=== PATIENT | female | born 1995 | race Caucasian/White ===

== ENCOUNTER 2019-03-27 16:46 | Emergency (ER) | payer OTHER | END 2019-03-27 19:28 | disposition home or self-care (01) | LOC: ED 16:46 ==

== ENCOUNTER 2024-03-24 12:34 | Emergency (ER) | payer BC ==
[2024-03-24 12:56] VITALS: TEMP 96; O2SAT 97
[2024-03-24] MEDS ORDERED: solu-MEDROL ONE (13:11)
[2024-03-24] MEDS ORDERED: BENADRYL 50 MG/ML ONE (13:11)
[2024-03-24] MEDS ORDERED: Sterile H2O 10 ml IJ ONE (13:11)
[2024-03-24] MEDS ORDERED: Sodium Chloride 0.9% 1000 ML 1,000 ML ONE (13:11)
[2024-03-24] MEDS ORDERED: Zofran 4 MG/2 ML VIAL ONE (13:11)
--- NOTE | 2024-03-24 13:11 | ERPHSYRPT ---
- History of Present Illness Time Seen by Provider: 03/24/24 13:00 Source: patient Exam Limitations: no limitations Patient Subjective Stated Complaint: Allergic Reaction Triage Nursing Assessment: Patient ambulated back to ED and transferred self to bed. Patient A+O X3. Patient's skin pink, warm and dry. Patient had her gallbladder removed on 03/22/2024. Patient states Tuesday morning she started developing a rash around the dressing site areas. Patient states Tuesday evening the rash got worse. Patient has been taking Benadryl 50mg and pepcid 40mg every 4 hours since. Patient has started vomiting and unable to keep meds down. Patient has scattered red rash to face, chest, breasts, abdomen and pelvic area. Patient denies pain or discomfort. Patient complains of itching to rash. Physician History: 28yo f presents via private vehicle for rash that started after having laparoscopic cholecystectomy by Dr Bueno on 03/22/24. Pt reports she has had a similar reaction to adhesive in the past following her epidural during child . Pt reports the rash is most painful and itchy on her upper abdomen and un kd her breasts b/l, states it has been spreading to her lower abdomen, flanks, and reports she is starting to feel irritation around her face. Pt reports she has taken pepcid and benadryl 50mg today, has also been using steroid cream since the rash developed w/o any improvement. Pt has mild cough that started following intubation, pt denies any fevers at home. Pt does endorse 1 episode of emesis this AM, denies any difficulty swallowing or difficulty breathing. Timing/Duration: day(s) (3) Quality: itchy, painful Severity: moderate Location: face, torso Possible Causes: exposure to allergen Associated Symptoms: flushing, hives, rash, No difficulty breathing, No edema, No fever, No headache, No numbness, No paresthesia, No sore throat, No s welling/mass/lumps, No tingling Allergies/Adverse Reactions: No Known Drug Allergies Allergy (Verified 03/24/24 12:41) Hx Tetanus, Diphtheria Vaccination/Date Given: Yes Hx Influenza Vaccination/Date Given: No Hx Pneumococcal Vaccination/Date Given: No Immunizations Up to Date: Yes Travel Risk - International Travel Have you traveled outside of the country in past 3 weeks: No - Emerging Infectious Disease Are you exhibiting symptoms associated with any current EIDs: No - Review of Systems Constitutional: No Fever, No Chills, No Weakness Eyes: Itchy, No Tearing, No Vision Changes, No Double Vision Ears, Nose, & Throat: No Symptoms Respiratory: Cough, No Dyspnea, No Stridor, No Wheezing Cardiac: No Symptoms Abdominal/Gastrointestinal: Abdominal Pain (2/2 recent abdominal surgery), Other (well healing laparoscopic wounds on abdomen x 4, minimal TTP near incision sites) Genitourinary Symptoms: No Symptoms Skin: Rash Neurological: No Symptoms - Past Medical History Pertinent Past Medical History: No Neurological History: No Pertinent History ENT History: No Pertinent History Cardiac History: No Pertinent History Respiratory History: No Pertinent History Endocrine Medical History: No Pertinent History Musculoskeletal History: No Pertinent History GI Medical History: No Pertinent History History: No Pertinent History Psycho-Social History: No Pertinent History Female Reproductive Disorders: No Pertinent History - Past Surgical History Past Surgical History: Yes Neuro Surgical History: No Pertinent History Cardiac: No Pertinent History Respiratory: No Pertinent History Gastrointestinal: Cholecystectomy Genitourinary: No Pertinent History Musculoskeletal: Orthopedic Surgery Female Surgical History: No Pertinent History Other Surgical History: right knee 2013, left knee 03/2019 - Female History Hx Last Menstrual Period: 03/11/2024 Hx Now: No - Social History Smoking Status: Never smoker Exposure to second hand smoke: No Drug Use: none Patient Lives Alone: No - Social Determinants of Health Will the patient participate in the screening: Yes Do you worry about a steady place to live?: No Do you have any problems with any of the following?: No known problems In the past 12 months,have you had to go without utilities?: No Transportation Issues: No Has anyone in your support network made you feel unsafe?: No Have you or anyone in your house had to go without enough: No - Nursing Vital Signs Nursing Vital Signs: Initial Vital Signs Temperature 96.0 F 03/24/24 12:43 Pulse Rate 88 03/24/24 12:43 Respiratory Rate 20 03/24/24 12:43 Blood Pressure 129/73 03/24/24 12:43 O2 Sat by Pulse Oximetry 97 03/24/24 12:43 Pain Scale Pain Intensity 0 - Physical Exam General Appearance: no apparent distress, alert Eye Exam: PERRL/EOMI, eyes nml inspection Ears, Nose, Throat Exam: normal ENT inspection Neck Exam: normal inspection, non-tender Respiratory Exam: normal breath sounds, lungs clear, airway intact, No chest tenderness, No respiratory distress Cardiovascular Exam: regular rate/rhythm, normal heart sounds Gastrointestinal/Abdomen Exam: soft, normal bowel sounds, tenderness (mild TTP near incision sites), No distention, No rebound, No hernia Neurologic Exam: alert, oriented x 3, cooperative Skin Exam: rash (erythematous, slightly raised, non-pustular, pink rash in linear distribution under breasts b/l, around incision sites; mild petechiae diffusely along abdomen and flank; no obvious rash on face or around eyes), petechiae SpO2 Interpretation: normal SpO2: 97 O2 Delivery: Room Air Ordered Tests: Active Orders 24 hr Category Date Time Status CBC W DIFF Stat Lab 03/24/24 13:05 Completed CMP Stat Lab 03/24/24 13:05 Completed Medication Summary Discontinued Medications Generic Name Dose Route Start Last Admin Trade Name Freq PRN Reason Stop Dose Admin Methylprednisolone Sodium 0 mg 03/24/24 13:05 03/24/24 13:18 Succinate 125 mg/ Sterile IV 03/24/24 13:06 125 mg Water 2 ml STAT ONE Administration Diphenhydramine HCl 25 mg 03/24/24 13:05 03/24/24 13:15 Diphenhydramine Hcl 50 Mg/Ml Vial IV 03/24/24 13:06 25 mg STAT ONE Administration Diphenhydramine HCl Confirm 03/24/24 13:11 Diphenhydramine Hcl 50 Mg/Ml Vial Administered 03/24/24 13:12 Dose 50 mg .ROUTE .STK-MED ONE Sodium Chloride 1,000 mls @ 999 mls/hr 03/24/24 13:05 03/24/24 14:19 Sodium Chloride 0.9% 1000 Ml IV 03/24/24 14:05 Infused .Q1H1M STA Infusion Sodium Chloride Confirm 03/24/24 13:11 Sodium Chloride 0.9% 1000 Ml Administered 03/24/24 13:12 Dose 1,000 mls @ ud .ROUTE .STK-MED ONE Methylprednisolone Sodium Succinate Confirm 03/24/24 13:11 Methylprednis Sod Succ 125 Mg/2 Ml Vial Administered 03/24/24 13:12 Dose 125 mg .ROUTE .STK-MED ONE Ondansetron HCl 4 mg 03/24/24 13:05 03/24/24 13:13 Ondansetron Hcl 4 Mg/2 Ml Vial IV 03/24/24 13:06 4 mg STAT ONE Administration Ondansetron HCl Confirm 03/24/24 13:11 Ondansetron Hcl 4 Mg/2 Ml Vial Administered 03/24/24 13:12 Dose 4 mg .ROUTE .SiteJabberK-MED ONE Sterile Water Confirm 03/24/24 13:11 Water For Injection,Sterile 10 Ml Vial Administered 03/24/24 13:12 Dose 10 ml IJ .SiteJabberK-MED ONE Lab/Rad Data: Laboratory Result Diagrams 03/24/24 13:05 03/24/24 13:05 Laboratory Results 03/24/24 03/24/24 Range/Units 13:05 13:05 WBC 7.3 (3.98-10.04) x10^3/uL RBC 4.30 (3.93-5.22) x10^6/uL Hgb 11.8 (11.2-15.7) g/dL Hct 37.2 (34.1-44.9) % MCV 86.5 (79.4-94.8) fL MCH 27.4 (25.6-32.2) pg MCHC 31.7 L (32.2-35.5) g/dL RDW 14.6 H (11.7-14.4) % Plt Count 244 (182-369) x10^3/uL MPV 10.7 (9.4-12.3) fL Gran % 68.8 (34.0-71.1) % Immature Gran % (Auto) 0.4 (0.001-0.429) % Nucleat RBC Rel Count 0.0 (0.00-0.2) % Eos # (Auto) 0.33 (0.04-0.36) x10^3/uL Immature Gran # (Auto) 0.03 (0.001-0.031) x10^3u/L Absolute Lymphs (auto) 1.49 (1.18-3.74) x10^3/uL Absolute Monos (auto) 0.40 (0.24-0.86) x10^3/uL Absolute Nucleated RBC 0.00 (0.00-0.012) x10^3u/L Lymphocytes % 20.5 (19.3-51.7) % Monocytes % 5.5 (4.7-12.5) % Eosinophils % 4.5 (0.7-5.8) % Basophils % 0.3 (0.1-1.2) % Absolute Granulocytes 5.01 (1.56-6.13) x10^3/uL Basophils # 0.02 (0.01-0.08) x10^3/uL Sodium 139 (135-145) mmol/L Potassium 3.9 (3.5-5.1) mmol/L Chloride 105 (98-107) mmol/L Carbon Dioxide 25 (22-30) mmol/L Anion Gap 13.3 (5-15) MEQ/L BUN 14 (7-17) mg/dL Creatinine 1.03 (0.52-1.04) mg/dL Estimated GFR 76.4 ML/MIN Glucose 89 (74-106) mg/dL Calcium 9.4 (8.4-10.2) mg/dL Total Bilirubin 0.50 (0.2-1.3) mg/dL AST 49 H (14-36) U/L ALT 75 H (0-35) U/L Alkaline Phosphatase 56 (38-126) U/L Serum Total Protein 7.6 (6.3-8.2) g/dL Albumin 4.4 (3.5-5.0) g/dL - Progress Progress: improved Progress Note: 03/24/24 14:27 pt resting comfortably on re-exam itching has improved labs remarkable only for mild elevation in LFTs which is consistent w/ recent cholecystectomy 03/24/24 15:03 pt reports some improvement in sx following benadryl and steroids plan to dc home w/ course of steroids 20mg PO x 5d, will limit dose in setting of recent surgery call Dr Bueno's office on 03/26/24 to discuss sx - keep follow up appt on 03/28 continue OTC benadryl and daily antihistamine as needed for itching continue OTC steroid cream on affected areas return to ED if: rash begins to involve eyes/mouth, develop difficulty breathing, develop fevers, develop abdominal pain that does not resolve w/ OTC pain medication, symptoms become unbearable Counseled pt/family regarding: lab results, diagnosis, need for follow-up Medical Desision Making - Risk of complications Minimal Risk: Minimal risk of morbidity - Departure Departure Disposition: Home Clinical Impression: Skin rash Condition: Stable Critical Care Time: No Referrals: KIP OWEN MD [Primary Care Provider] - Follow up/PCP as directed Additional Instructions: plan to dc home w/ course of steroids 20mg PO x 5d, will limit dose in setting of recent surgery call Dr Bueno's office on 03/26/24 to discuss sx - keep follow up appt on 03/28 continue OTC benadryl and daily antihistamine as needed for itching continue OTC steroid cream on affected areas return to ED if: rash begins to involve eyes/mouth, develop difficulty breathing, develop fevers, develop abdominal pain that does not resolve w/ OTC pain medication, symptoms become unbearable Prescriptions: Prednisone 20 mg [Deltasone 20 mg] 20 mg PO DAILY #5 tablet
[2024-03-24 13:13] LABS: Absolute Neutrophil Ct (ANC) 5.01 x10^3/uL (1.56-6.13); BASOPHIL % 0.3 % (0.1-1.2); Basophil (Absolute #) 0.02 x10^3/uL (0.01-0.08); Eosinophil % 4.5 % (0.7-5.8); Eosinophil (Absolute #) 0.33 x10^3/uL (0.04-0.36); Hematocrit 37.2 % (34.1-44.9); Hemoglobin 11.8 g/dL (11.2-15.7); IMMATURE GRAN # 0.03 x10^3u/L (0.001-0.031); IMMATURE GRAN % 0.4 % (0.001-0.429); Lymphocyte (Absolute #) 1.49 x10^3/uL (1.18-3.74); Lymphocytes % 20.5 % (19.3-51.7); Mean Cell Volume 86.5 fL (79.4-94.8); Mean Corpuscular Hemoglobin 27.4 pg (25.6-32.2); Mean Corpuscular Hgb Concent. 31.7 g/dL (32.2-35.5); Mean Platelet Volume 10.7 fL (9.4-12.3); Monocytes % 5.5 % (4.7-12.5); Neutrophil % 68.8 % (34.0-71.1); Platelet Count 244 x10^3/uL (182-369); Red Cell Distribution Width 14.6 % (11.7-14.4); White Blood Count 7.3 x10^3/uL (3.98-10.04)
[2024-03-24] MEDS: Zofran 4 MG/2 ML VIAL IV ONE (13:13)
[2024-03-24] MEDS: BENADRYL 50 MG/ML IV ONE (13:15)
[2024-03-24] MEDS: solu-MEDROL 125 MG, Sterile H2O 10 ml 2 ML IV ONE (13:18)
[2024-03-24] MEDS: Sodium Chloride 0.9% 1000 ML 1,000 ML IV STA (13:18)
[2024-03-24 13:32] LABS: ALBUMIN 4.4 g/dL (3.5-5.0); ANION GAP 13.3 MEQ/L (5-15); BILIRUBIN,TOTAL 0.5 mg/dL (0.2-1.3); Calcium 9.4 mg/dL (8.4-10.2); Creatinine 1 1.03 mg/dL (0.52-1.04); EST GLOMERULAR FILTRATION RATE 76.4 ML/MIN; Potassium 3.9 mmol/L (3.5-5.1); Total Protein 7.6 g/dL (6.3-8.2)
[2024-03-24 15:18] VITALS: BP 115/67; PULSE 68; RESP 16
== END 2024-03-24 15:20 | disposition home or self-care (01) ==
LOC: ED 12:34
DX: R21 Rash and other nonspecific skin eruption (principal); Z79.52 Long term (current) use of systemic steroids
CPT/HCPCS: 36000; 36415; 80053; 85025; 96374; 96375; 99284; J1200; J2405; J2919